=== PATIENT | female | born 1945 | race Caucasian/White ===

== ENCOUNTER 2018-08-11 17:08 | Observation (INO) | payer OTHER, MEDICARE ==
[2018-08-11] MEDS ORDERED: NS 1,800 ML IV ONE (17:58)
--- NOTE | 2018-08-11 18:05 | EDPHY ---
H & P Stated Complaint: cough off and on for 6 months, hx of pneumonias Time Seen by Provider: 08/11/18 17:27 HPI/ROS: CHIEF COMPLAINT: Cough, shortness of breath HISTORY OF PRESENT ILLNESS: Patient is a healthy 73-year-old female who comes to the emergency department complaining 1 week of cough and shortness of breath. She states that this is similar to an episode last year of pneumonia that hospitalized her. She states that she coughed so hard at 1 point that she went into fibrillation and her "heart stopped". She reports that after multiple cardiac test they decided she did not have a cardiac problem. This was done in hospital in the [facility]. She denies any leg pain or swelling. She had a fever few days ago but has not today. She also had runny nose and sore throat a few days ago but does not today. Daughter states that they were trying to get in to a primary care doctor but were unable to today so they came to the ER. Her cough has been nonproductive and nonbloody. Severity: Moderate Modifying factors: Cough gradually worsening, sinus symptoms improving REVIEW OF SYSTEMS: Constitutional: denies: chills, fever, recent illness, recent injury EENTM: denies: blurred vision, double vision, nose congestion Respiratory: See HPI Cardiac: denies: chest pain, irregular heart rate, lightheadedness, palpitations Gastrointestinal/Abdominal: denies: abdominal pain, diarrhea, nausea, vomiting, blood streaked stools Genitourinary: denies: dysuria, frequency, hematuria, pain Musculoskeletal: denies: joint pain, muscle pain Skin: denies: lesions, rash, jaundice, bruising Neurological: denies: headache, numbness, paresthesia, tingling, dizziness, weakness Hematologic/Lymphatic: denies: blood clots, easy bleeding, easy bruising Immunologic/allergic: denies: HIV/AIDS, transplant 10 systems reviewed and negative except as noted EXAM: GENERAL: Well-appearing, well-nourished and in no acute distress. HEAD: Atraumatic, normocephalic. EYES: Pupils equal round and reactive to light, extraocular movements intact, sclera anicteric, conjunctiva are normal. ENT: TMs normal, nares patent, oropharynx clear without exudates. Moist mucous membranes. NECK: Normal range of motion, supple without lymphadenopathy or JVD. LUNGS: The left middle and lower lobe rhonchi HEART: Regular rate and rhythm without murmurs, rubs or gallops. ABDOMEN: Soft, nontender, normoactive bowel sounds. No guarding, no rebound. No masses appreciated. BACK: No CVA tenderness, no spinal tenderness, step-offs or deformities EXTREMITIES: Normal range of motion, no pitting or edema. No clubbing or cyanosis. NEUROLOGICAL: Cranial nerves II through XII grossly intact. Normal speech, normal gait. 5/5 strength, normal movement in all extremities, normal sensation , normal reflexes PSYCH: Normal mood, normal affect. SKIN: Warm, dry, normal turgor, no visible rashes or lesions. Source: Patient Exam Limitations: No limitations - Personal History Current Tetanus/Diphtheria Vaccine: No Current Tetanus Diphtheria and Acellular Pertussis (TDAP): No - Medical/Surgical History Hx Asthma: No Hx Chronic Respiratory Disease: No Hx Diabetes: No Hx Cardiac Disease: No Hx Renal Disease: No Hx Cirrhosis: No Hx Alcoholism: No Hx HIV/AIDS: No Hx Splenectomy or Spleen Trauma: No - Family History Significant Family History: No pertinent family hx - Social History Smoking Status: Never smoked Alcohol Use: Sober Constitutional: Initial Vital Signs Temperature (C) 37.1 C 08/11/18 17:11 Heart Rate 99 08/11/18 17:11 Respiratory Rate 16 08/11/18 17:11 Blood Pressure 141/100 H 08/11/18 17:11 O2 Sat (%) 93 08/11/18 17:11 O2 Delivery Mode Room Air Allergies/Adverse Reactions: codeine Allergy (Verified 08/11/18 20:57) Other-Enter Comments Penicillins Allergy (Verified 08/11/18 17:16) Home Medications: Medication Instructions Recorded Acetaminophen [Tylenol 325mg (*)] 325 mg PO Q6 PRN 08/11/18 Ibuprofen [Motrin (*)] 200 - 600 mg PO DAILY PRN 08/11/18 Naproxen Sod/Diphenhydramine 1 each PO DAILY PRN 08/11/18 [Aleve Pm Caplet] Medical Decision Making - Diagnostics EKG Interpretation: An EKG obtained and was read and documented in trace view. Please see trace view for full reading and report. Sinus rhythm, no acute ischemic changes Imaging Results: Imaging Impressions Chest X-Ray 08/11/18 17:58 Impression: Negative chest. Imaging: Discussed imaging studies w/ call center support consultant Radiologist ED Course/Re-evaluation: Patient's son was able to confirm with his nurse that the patient had been on Ceftin for the 14 days of continuation for a total of 21 days of Ceftin that finished 3 days ago. 7:00 p.m. The patient's lab work and x-ray are reassuring however she has hyponatremic. Will repeat the blood work to verify. Have stopped the IV fluids that had been given. She has received about 1 L of normal saline. 8:20 p.m. the patient's sodium remains low. I have discussed her case with Dr. Swan who will admit. Will order antibiotics because respiratory panel is negative. Patient is also asking for cough medicine. Will treat with cough tablets. Differential Diagnosis: Partial list of the Differential diagnosis considered include but were not limited to; pneumonia, bronchitis, electrolyte abnormality and although unlikely based on the history and physical exam, I also considered acute coronary disease, dissection, tumor, sepsis. - Data Points Laboratory Results: Laboratory Results 08/11/18 18:24 08/11/18 18:24 08/11/18 08/11/18 08/11/18 19:24 18:24 18:24 WBC RBC Hgb Hct MCV MCH MCHC RDW Plt Count MPV Neut % (Auto) Lymph % (Auto) [place] % (Auto) Eos % (Auto) Baso % (Auto) Nucleat RBC Rel Count Absolute Neuts (auto) Absolute Lymphs (auto) Absolute Monos (auto) Absolute Eos (auto) Absolute Basos (auto) Absolute Nucleated RBC Immature Gran % Immature Gran # RBC/WBC/PLT Morphology Platelet Estimate PT INR APTT VBG Lactic Acid Sodium 128 mEq/L L mEq/L 127 mEq/L L mEq/L (135-145) (135-145) Potassium 4.4 mEq/L mEq/L 4.4 mEq/L mEq/L (3.5-5.2) (3.5-5.2) Chloride 96 mEq/L L mEq/L 97 mEq/L mEq/L (97-110) (97-110) Carbon Dioxide 22 mEq/l mEq/l 22 mEq/l mEq/l (22-31) (22-31) Anion Gap 10 mEq/L mEq/L 8 mEq/L mEq/L (6-14) (6-14) BUN 10 mg/dL mg/dL 10 mg/dL mg/dL (7-23) (7-23) Creatinine 0.6 mg/dL mg/dL 0.6 mg/dL mg/dL (0.6-1.0) (0.6-1.0) Estimated GFR > 60 > 60 Glucose 92 mg/dL mg/dL 93 mg/dL mg/dL (70-100) (70-100) Calcium 9.1 mg/dL mg/dL 9.1 mg/dL mg/dL (8.5-10.4) (8.5-10.4) Total Bilirubin 0.3 mg/dL mg/dL (0.1-1.4) NT-Pro-B Natriuret Pep 92 pg/mL pg/mL (0-125) TSH Pending 08/11/18 08/11/18 08/11/18 18:24 18:24 18:24 WBC 3.48 10^3/uL L 10^3/uL (3.80-9.50) RBC 4.57 10^6/uL 10^6/uL (4.18-5.33) Hgb 13.1 g/dL g/dL (12.6-16.3) Hct 39.8 % % (38.0-47.0) MCV 87.1 fL fL (81.5-99.8) MCH 28.7 pg pg (27.9-34.1) MCHC 32.9 g/dL g/dL (32.4-36.7) RDW 13.0 % % (11.5-15.2) Plt Count 266 10^3/uL 10^3/uL (150-400) MPV 8.7 fL fL (8.7-11.7) Neut % (Auto) 74.4 % H % (39.3-74.2) Lymph % (Auto) 13.8 % L % (15.0-45.0) [place] % (Auto) 9.2 % % (4.5-13.0) Eos % (Auto) 2.0 % % (0.6-7.6) Baso % (Auto) 0.6 % % (0.3-1.7) Nucleat RBC Rel Count 0.0 % % (0.0-0.2) Absolute Neuts (auto) 2.59 10^3/uL 10^3/uL (1.70-6.50) Absolute Lymphs (auto) 0.48 10^3/uL L 10^3/uL (1.00-3.00) Absolute Monos (auto) 0.32 10^3/uL 10^3/uL (0.30-0.80) Absolute Eos (auto) 0.07 10^3/uL 10^3/uL (0.03-0.40) Absolute Basos (auto) 0.02 10^3/uL 10^3/uL (0.02-0.10) Absolute Nucleated RBC 0.00 10^3/uL 10^3/uL (0-0.01) Immature Gran % 0.0 % % (0.0-1.1) Immature Gran # 0.00 10^3/uL 10^3/uL (0.00-0.10) RBC/WBC/PLT Morphology TNP Platelet Estimate TNP PT 12.2 SEC SEC (12.0-15.0) INR 0.94 (0.83-1.16) APTT 31.1 SEC SEC (23.0-38.0) VBG Lactic Acid 0.6 mmol/L L mmol/L (0.7-2.1) Sodium Potassium Chloride Carbon Dioxide Anion Gap BUN Creatinine Estimated GFR Glucose Calcium Total Bilirubin NT-Pro-B Natriuret Pep TSH Microbiology Results: MICROBIOLOGY 08/11/18 18:20 Nasal, Sinus - Swab Respiratory Panel (PCR) - Final No Organism Detected By Pcr Medications Given: Albuterol/Ipratropium (Duoneb) 3 ml IH QID KIKE Stop: 02/07/19 20:59 Last Admin: 08/11/18 21:48 Dose: 3 ml Sodium Chloride (Ns) 1,000 mls @ 125 mls/hr IV CONT KIKE Stop: 02/07/19 20:59 Last Admin: 08/11/18 21:36 Dose: 1,000 mls Azithromycin 500 mg/ Sodium (Chloride) 255 mls @ 255 mls/hr IV EDNOW ONE PRN Reason: Protocol Stop: 08/11/18 22:59 Last Admin: 08/11/18 21:43 Dose: 255 mls Discontinued Medications Benzonatate (Tessalon Pearles) 200 mg PO EDNOW ONE Stop: 08/11/18 20:26 Last Admin: 08/11/18 21:42 Dose: 200 mg Sodium Chloride (Ns) 1,800 mls @ 3,600 mls/hr 30 ml/kg infuse over 30 min ( 1800 ml) IV EDNOW ONE PRN Reason: Protocol Stop: 08/11/18 18:27 Last Admin: 08/11/18 18:28 Dose: 1,800 mls Departure - Departure Disposition: Home, Routine, Self-Care Clinical Impression: Hyponatremia Pneumonia Qualifiers: Pneumonia type: due to unspecified organism Laterality: left Lung location: unspecified part of lung Qualified Code(s): J18.9 - Pneumonia, unspecified organism Condition: Fair
[2018-08-11 18:38] LABS: PLATELET COUNT 266 10^3/uL (150-400)
[2018-08-11 18:46] LABS: INR 0.94 (0.83-1.16); PROTIME(PATIENT) 12.2 SEC (12.0-15.0)
--- NOTE | 2018-08-11 18:47 | CPEKG ---
Test Reason : OPEN Blood Pressure : / mmHG Vent. Rate : 084 BPM Atrial Rate : 084 BPM P-R Int : 153 ms QRS Dur : 075 ms QT Int : 367 ms P-R-T Axes : 056 057 027 degrees QTc Int : 434 ms Sinus rhythm Confirmed by Maureen Buenrostro ([id number]) on 08/11/2018 6:46:28 PM Referred By: MAUREEN BUENROSTRO Confirmed By:Maureen Buenrostro
[2018-08-11] MEDS ORDERED: BENZONATATE 100 MG CAP PO ONE (20:25)
[2018-08-11] MEDS ORDERED: AZITHROMYCIN IV 500 MG in D5W 250 ML IV SCH (20:30)
[2018-08-11] MEDS ORDERED: ONDANSETRON DISINTEGRATING 4 MG TAB PO PRN (20:50)
[2018-08-11] MEDS ORDERED: ACETAMINOPHEN 325 MG TAB PO PRN (20:50)
[2018-08-11] MEDS ORDERED: oxyCODONE IR 5 MG TAB PO PRN (20:50)
[2018-08-11] MEDS ORDERED: ONDANSETRON 4 MG/2 ML VIAL IVP PRN (20:50)
[2018-08-11] MEDS ORDERED: HYDROCODONE/APAP 5/325 TAB PO PRN (20:50)
[2018-08-11] MEDS ORDERED: ALBUTEROL 3 ML DEYVIAL IH PRN (20:50)
[2018-08-11] MEDS ORDERED: PROMETHAZINE HCL 25 MG/ML INJ IVP PRN (20:50)
[2018-08-11] MEDS ORDERED: IPRATROPIUM/ALBUTEROL 3 ML DEYVIAL IH SCH (21:00)
[2018-08-11] MEDS ORDERED: HYDROcodone/CPM TUSSIONEX 5 ML UDSYR PO PRN (21:23)
[2018-08-11] MEDS ORDERED: BENZONATATE 100 MG CAP PO PRN (21:23)
[2018-08-11] MEDS ORDERED: AZITHROMYCIN IV 500 MG in NS 250 ML IV SCH (21:30)
[2018-08-11] MEDS: NS 1,000 ML IV SCH (21:36)
--- NOTE | 2018-08-11 21:39 | PDGENHP ---
History and Physical - Chief Complaint sob, cough - History of Present Illness 73 yo F with very limited PMH presenting with several days of cough, fatigue and SOB. She notes the cough is mostly non productive, she has had some tightness in her chest as well similar to an 'asthma attack' she had several years ago. She also was diagnosed with pneumonia one year ago and hospitalized on the [facility] where she underwent cardiac testing that was unremarkable. She also has noticed that her urine smells strange for the past 2-3 weeks, she has not had any pain with urination or increased frequency or urgency however. She has not had fever or chills. She notes this year has been very stressful as her and she has had to live with her daughter and she wonders if her immune system is not as good due to that. She does take ibuprofen and aleve daily as well as tylenol, but notes she does not ever take high doses. She has been eating and drinking normally. She does not take any supplements or vitamins. History Information - Allergies/Home Medication List Allergies/Adverse Reactions: codeine Allergy (Verified 08/11/18 20:57) Other-Enter Comments Penicillins Allergy (Verified 08/11/18 17:16) Home Medications: Acetaminophen [Tylenol 325mg (*)] 325 mg PO Q6 PRN 08/11/18 [Last Taken Unknown] Ibuprofen [Motrin (*)] 200 - 600 mg PO DAILY PRN 08/11/18 [Last Taken Unknown] Naproxen Sod/Diphenhydramine [Aleve Pm Caplet] 1 each PO DAILY PRN 08/11/18 [ Last Taken 08/11/18 13:00] I have personally reviewed and updated: family history, medical history, social history, surgical history - Past Medical History no pertinent PMH - Surgical History Reports: no pertinent surgical hx - Family History Positive for: non-pertinent - Social History Smoking Status: Never smoked Alcohol Use: Sober Drug Use: None Additional social history: recently and currently living with her daughter Review of Systems Review of Systems: ROS: 10pt was reviewed & negative except for what was stated in HPI & below Physical Exam Physical Exam: Temp Pulse Resp BP Pulse Ox 37.0 C 85 16 151/101 H 93 08/11/18 21:05 08/11/18 21:05 08/11/18 21:05 08/11/18 21:05 08/11/18 21:05 Constitutional: no apparent distress, appears nourished Eyes: PERRL, anicteric sclera Ears, Nose, Mouth, Throat: moist mucous membranes, hearing normal Cardiovascular: regular rate and rhythym, no murmur, rub, or gallop, No edema Respiratory: expiratory wheeze, rhonchi Gastrointestinal: normoactive bowel sounds, soft, non-tender abdomen Genitourinary: no bladder tenderness Skin: warm, normal color Musculoskeletal: full muscle strength Neurologic: AAOx3 Psychiatric: interacting appropriately, not anxious, not encephalopathic Lab Data & Imaging Review 08/11/18 18:24 08/11/18 18:24 WBC 3.48 10^3/uL (3.80-9.50) L 08/11/18 18:24 RBC 4.57 10^6/uL (4.18-5.33) 08/11/18 18:24 Hgb 13.1 g/dL (12.6-16.3) 08/11/18 18:24 Hct 39.8 % (38.0-47.0) 08/11/18 18:24 MCV 87.1 fL (81.5-99.8) 08/11/18 18:24 MCH 28.7 pg (27.9-34.1) 08/11/18 18:24 MCHC 32.9 g/dL (32.4-36.7) 08/11/18 18:24 RDW 13.0 % (11.5-15.2) 08/11/18 18:24 Plt Count 266 10^3/uL (150-400) 08/11/18 18:24 MPV 8.7 fL (8.7-11.7) 08/11/18 18:24 Neut % (Auto) 74.4 % (39.3-74.2) H 08/11/18 18:24 Lymph % (Auto) 13.8 % (15.0-45.0) L 08/11/18 18:24 [place] % (Auto) 9.2 % (4.5-13.0) 08/11/18 18:24 Eos % (Auto) 2.0 % (0.6-7.6) 08/11/18 18:24 Baso % (Auto) 0.6 % (0.3-1.7) 08/11/18 18:24 Nucleat RBC Rel Count 0.0 % (0.0-0.2) 08/11/18 18:24 Absolute Neuts (auto) 2.59 10^3/uL (1.70-6.50) 08/11/18 18:24 Absolute Lymphs (auto) 0.48 10^3/uL (1.00-3.00) L 08/11/18 18:24 Absolute Monos (auto) 0.32 10^3/uL (0.30-0.80) 08/11/18 18:24 Absolute Eos (auto) 0.07 10^3/uL (0.03-0.40) 08/11/18 18: Absolute Basos (auto) 0.02 10^3/uL (0.02-0.10) 08/11/18 18: Absolute Nucleated RBC 0.00 10^3/uL (0-0.01) 08/11/18 18: Immature Gran % 0.0 % (0.0-1.1) 08/11/18 18: Immature Gran # 0.00 10^3/uL (0.00-0.10) 08/11/18 18:24 RBC/WBC/PLT Morphology TNP 08/11/18 18: Platelet Estimate TNP 08/11/18 18:24 PT 12.2 SEC (12.0-15.0) 08/11/18 18:24 INR 0.94 (0.83-1.16) 08/11/18 18:24 APTT 31.1 SEC (23.0-38.0) 08/11/18 18:24 VBG Lactic Acid 0.6 mmol/L (0.7-2.1) L 08/11/18 18:24 Sodium 128 mEq/L (135-145) L 08/11/18 18:24 Potassium 4.4 mEq/L (3.5-5.2) 08/11/18 18:24 Chloride 96 mEq/L (97-110) L 08/11/18 18:24 Carbon Dioxide 22 mEq/l (22-31) 08/11/18 18:24 Anion Gap 10 mEq/L (6-14) 04/01/19 18:24 BUN 10 mg/dL (7-23) 08/11/18 18:24 Creatinine 0.6 mg/dL (0.6-1.0) 08/11/18 18:24 Estimated GFR > 60 08/11/18 18:24 Glucose 92 mg/dL (70-100) 08/11/18 18:24 Calcium 9.1 mg/dL (8.5-10.4) 08/11/18 18:24 Total Bilirubin 0.3 mg/dL (0.1-1.4) 08/11/18 18:24 Visualized and Interpreted Chest x-ray results: Yes Chest X-Ray results: no infiltrate Assessment & Plan Assessment: Hyponatremia (Acute) Pneumonia (Acute) 73 yo F with no significant PMH other than chronic back pain presenting with sob /cough concerning for pna/bronchopneumonia and hyponatremia # bronchopneumonia/bronchitis: no infiltrate on cxr but continues to have cough with rhonchi noted at left base and scattered wheeze. Started on azithromycin for now, will repeat cxr in am. Duonebs qid and albuterol nebs prn overnight. # hyponatremia: mild but no clear etiology, patient denies poor po intake and does not appear dry, will get UA, urine Na/urine osmols, will check tsh, legionella urinary ag and IVF overnight, recheck in am # leukopenia: mild and in the setting of infectious process, will trend # chronic back pain: takes aleve and ibuoprofen daily, no e/o ckd, cautioned regarding watermaster nsaid use # DNR # observation status, suspect she will be ready for dc in am Patient new to my care. Old records reviewed and summarized as above. Care plan reviewed with ER doctor, further hx obtained from patients daughter present at bedside.
[2018-08-11] MEDS ORDERED: AZITHROMYCIN IV 500 MG in NS 250 ML IV ONE (22:00)
[2018-08-11] MEDS ORDERED: IPRATROPIUM/ALBUTEROL 3 ML DEYVIAL IH PRN (22:32)
[2018-08-12] MEDS ORDERED: CEPACOL LOZENGE PO PRN (04:58)
[2018-08-12] MEDS ORDERED: GUAIFENESIN/DM 10 ML UDCUP PO PRN (05:00)
[2018-08-12 05:34] LABS: PLATELET COUNT 234 10^3/uL (150-400)
[2018-08-12] MEDS: NS 1,000 ML IV SCH (06:33)
[2018-08-12 07:26] VITALS: BP 144/92
[2018-08-12] MEDS ORDERED: AZITHROMYCIN 250 MG TAB PO SCH (09:00)
--- NOTE | 2018-08-12 10:43 | GDS ---
[f rep st] DISCHARGE SUMMARY DISCHARGE DIAGNOSES: 1. Bronchitis. 2. Hyponatremia. 3. Leukopenia. 4. Chronic back pain. STUDIES AND PROCEDURES DONE: Chest x-ray. PHYSICAL EXAM: GENERAL: The patient is alert. VITAL SIGNS: Afebrile at 36.9, pulse 89, respirator y rate 20, blood pressure is 144/92. She is saturating 94% on room air. I have seen and evaluated the patient on the day of discharge. HOSPITAL COURSE: The patient is a 73-year-old female who presented to the hospital with complaints o f cough and shortness of breath. She was evaluated and diagnosed with: 1. Bronchitis. During this hospitalization, she was treated with azithromycin. Her symptoms have s ignificantly improved. She will continue azithromycin at the time of disposition. 2. Hyponatremia. This is prerenal azotemia. She has responded well to fluids and her sodium is wit hin normal limits. 3. Leukopenia. I have discussed this abnormality with the patient. This is in the setting of infec tious process. She will follow up with a primary care provider in the outpatient setting for re-eval uation. 4. Disposition. She will be discharged home independently. There are no pending studies. DISCHARGE MEDICATIONS: Please refer to EMR form. I have provided prescriptions for azithromycin, as well as Tessalon Perles. There are no other pending studies. /[id number]/MODL
--- NOTE | 2018-08-12 11:23 | ASDISCHSUM ---
Discharge Information Plan Status:Home with No Needs Medically Cleared to Leave:08/12/2018 Discharge Date:08/12/2018 11:15 AM CM D/C Disposition:Home, Routine, Self-Care ADT D/C Disposition:Home, Routine, Self-Care Projected Discharge Date:08/12/2018 11:15 AM Transportation at D/C:Friend Discharge Delay Reason: Follow-Up Date:08/12/2018 11:15 AM Discharge Slot: Final Diagnosis:Pneumonia Placement Information Patient Contact Information Contact Name:SVITLANA Relationship:Daughter Address:[address] Work Phone: City:[place] Phone: State/Zip Code:[place] [address] Email: Financial Information Financial Class:Medicare Primary Plan Desc:MEDICARE OUTPATIENT Primary Plan Number:[id number] Secondary Plan Desc:REDD/SERAFIN SUPPLEMENT Secondary Plan Number:[id number] Assessment Information LACE LACE Length of stay for Answers: Less than 1 day current admission Acuity / Level of Answers: No Care: Did the patient have an inpatient admission? # of Emergency department Answers: 1-2 visits in the last 6 months Score: 1 Date Signed: 08/12/2018 11:22 AM Electronically Signed By:Beba Tompkins Case Management Discharge Plan Note Case Management Discharge Discharge Order Complete? Answers: Yes Patient to Obtain Answers: Independently Medications Transportation Arranged Answers: Family/Friends Transport will Pick (Date 08/12/2018 11:15 AM & Time) Family Notified Answers: Yes Notes: by pt Discharge Comments Notes: Spoke with pt walking in the hallway. Pt to discharge independently to daughter's house and is comfortable with this plan. No CM needs noted at this time. Date Signed: 08/12/2018 11:20 AM Electronically Signed By:Beba Tompkins Intervention Information Intervention Type:*BE-Signed Date of Service:08/12/2018 10:01 AM Patient Type:Observation Staff Member:Tiffany Souza Hours: Discipline: Severity: Comment:
== END 2018-08-12 11:15 | disposition home or self-care (01) ==
LOC: F3E 20:58
PROVIDERS: ADMIT Internal Medicine; ATTEND Student in an Organized Health Care Education/Training Program
DX: J40 Bronchitis, not specified as acute or chronic (principal); E87.1 Hypo-osmolality and hyponatremia; D72.819 Decreased white blood cell count, unspecified; E86.9 Volume depletion, unspecified; M54.9 Dorsalgia, unspecified; G89.29 Other chronic pain; Z88.0 Allergy status to penicillin; Z66 Do not resuscitate
CPT/HCPCS: 71045; 71046; 93005; 96361; 96374; 99285; G0378; J0456

== ENCOUNTER → 2018-08-18 | Outpatient (CLI) | payer OTHER, MEDICARE | LOC: EMCIMAGING 13:48 | PROVIDERS: ATTEND Nurse Practitioner Family | DX: J45.909 Unspecified asthma, uncomplicated (principal) | CPT/HCPCS: 71046-PN ==